=== PATIENT | male | born 1990 | race Two or more races ===

== ENCOUNTER 2016-08-21 18:49 | Emergency (ER) | payer BC ==
[~2016-08-21] VITALS: Ht 182.9 cm; Wt 81.0 kg
[2016-08-21 18:51] VITALS: BP 140/84
== END 2016-08-21 22:30 | disposition left against medical advice (07) ==
LOC: ER 18:51
DX: Z53.21 Procedure and treatment not carried out due to patient leaving prior to being seen by health care provider (principal)